=== PATIENT | female | born 1960 | race Caucasian/White ===

== ENCOUNTER → 2016-09-10 | Outpatient (CLI) | payer OTHER ==
[~2016-09-10] MED LIST: ASPIRIN DELAYE325 MG PO; ATENOLOL25 MG PO; ATENOLOL50 MG; COMPAZINE5 M1 PO; COUMADIN5 M1 PO; FISH OIL 500MG500 MG PO; FLOMAX0.4 MG PO; GABAPENTIN TAB600 MG PO; GLUCOSAMINE500 M1 PO; LANTUS100 U/ML SC; LIPITOR10 MG PO; LISINOPRIL/HCTZ1 TA1 PO; LISINOPRIL10 MG; MOTRIN800 MG PO; NOVAPLUS TACROLI1 MG PO; OMEPRAZOLE D/R20 MG PO; PERCOCET 325 MG1 TA2 PO; PRAVACHOL40 MG PO; PROCARDIA XL30 MG PO; SYNTHROID,LEVO75 MCG PO; VITAMIN D2000 IU PO
== END | disposition home or self-care (01) ==
LOC: US 19:00
DX: I73.9 Peripheral vascular disease, unspecified (principal); M79.604 Pain in right leg

== ENCOUNTER → 2016-11-13 | Outpatient (CLI) | payer OTHER ==
[2016-11-13 08:03] LABS: HEMATOCRIT 39.5 % (37.0-47.0); HEMOGLOBIN 13.1 g/dl (12.0-16.0); MEAN CELL VOLUME 85.5 fl (81.0-99.0); MEAN CORPUSCULAR HGB 28.4 pg (27.0-31.0); MEAN CORPUSCULAR HGB CONC 33.2 g/dl (33.0-37.0); MEAN PLATELET VOLUME 9.3 fl (9.6-12.3); PLATELET COUNT AUTOMATED 274 10*3/uL (130-400); RED BLOOD COUNT 4.62 10*6/uL (4.10-5.10); RED CELL DISTRI WIDTH 13.6 % (0-14.5); WHITE BLOOD COUNT 6.4 10*3/uL (4.8-10.8)
[2016-11-13 08:32] LABS: PLATELET SUFFICIENCY NORMAL (NORMAL); TOTAL CELLS COUNTED 100 #CELLS
[2016-11-13 08:35] LABS: ALBUMIN 3.3 gm/dl (3.1-4.5); ALKALINE PHOSPHATASE 90 U/L (45-117); BUN 12 mg/dl (7-24); CHLORIDE 104 mmol/L (98-107); CHOLESTEROL 190 mg/dL (<200); CREATININE 1.09 mg/dL (0.55-1.02); HDL CHOLESTEROL 38 mg/dl (40-60); LDL CHOLESTEROL 100 mg/dL (9-159); POTASSIUM 3.8 mmol/L (3.5-5.1); SGOT/AST 18 IU/L (3-35); SGPT/ALT 20 U/L (12-78); SODIUM 139 mmol/L (136-145); TOTAL PROTEIN 7.3 gm/dL (6.4-8.2); TRIGLYCERIDES 260 mg/dl (<150); VLDL CHOLESTEROL 52 mg/dL (6-40)
[2016-11-14 08:12] LABS: COMPLEMENT C4 001834 30 mg/dL (14-44)
[2016-11-14 12:07] LABS: ANA DIRECT Positive (Negative); ANTI-DSDNA ANTIBODIES 096339 <1 IU/mL (0-9); ANTICHROMATIN ANTIBODIES 0.3 AI (0.0-0.9)
[2016-11-15 00:09] LABS: DILUTE PROTHROMBIN TIME 46.6 sec (0.0-55.0); LUPUS DRVVT 63.2 sec (0.0-47.0); PTT-LA 45.8 sec (0.0-51.9)
== END ==
LOC: LAB 07:19
PROVIDERS: Internal Medicine
DX: E78.2 Mixed hyperlipidemia (principal); E03.9 Hypothyroidism, unspecified; I10 Essential (primary) hypertension; I77.2 Rupture of artery; M32.19 Other organ or system involvement in systemic lupus erythematosus

== ENCOUNTER → 2017-02-13 | Outpatient (CLI) | payer OTHER | LOC: US 15:00 | DX: I65.23 Occlusion and stenosis of bilateral carotid arteries (principal); I25.10 Atherosclerotic heart disease of native coronary artery without angina pectoris; I77.9 Disorder of arteries and arterioles, unspecified ==

== ENCOUNTER → 2017-05-31 | Outpatient (CLI) | payer OTHER | END | disposition home or self-care (01) | LOC: RAD 16:30 | DX: M54.9 Dorsalgia, unspecified (principal); R31.9 Hematuria, unspecified; R11.2 Nausea with vomiting, unspecified; R10.819 Abdominal tenderness, unspecified site ==

== ENCOUNTER 2017-07-13 09:59 | Emergency (ER) | payer OTHER ==
[~2017-07-13] VITALS: Ht 162.5 cm; Wt 90.7 kg
[2017-07-13 10:41] LABS: BASO % 0.3 % (0.0-1.0); EOS # 0.2 10*3/uL (0.0-0.4); EOS % 1.5 % (1.0-4.0); HEMATOCRIT 43.4 % (37.0-47.0); HEMOGLOBIN 14.8 g/dl (12.0-16.0); LYMPH # 1.7 10*3/uL (1.3-4.4); LYMPH % 12.9 % (27.0-41.0); MEAN CORPUSCULAR HGB 28.3 pg (27.0-31.0); MEAN CORPUSCULAR HGB CONC 34.1 g/dl (33.0-37.0); MONO # 1.3 10*3/uL (0.1-1.0); MONO % 9.6 % (3.0-9.0); NEUT # 9.8 10*3/uL (2.3-7.9); NEUT % 75.3 % (47.0-73.0); PLATELET COUNT AUTOMATED 340 10*3/uL (130-400); RED BLOOD COUNT 5.23 10*6/uL (4.10-5.10); RED CELL DISTRI WIDTH 14.3 % (0-14.5)
[2017-07-13] MEDS ORDERED: METOPROLOL SUCC25 M2 PO (10:44)
[2017-07-13] MEDS ORDERED: HYDR25T PO (10:45)
[2017-07-13] MEDS ORDERED: LEVOTHYROXINE75 MCG PO (10:46)
[2017-07-13] MEDS ORDERED: LIPITOR20 MG PO (10:46)
[2017-07-13 11:12] LABS: ACT PARTIAL THROMBO TIME 24.4 SECONDS (20.8-31.5); INTERNATIONAL NORM RATIO 0.9 (2.0-3.5)
[2017-07-13 11:19] LABS: ALBUMIN 3.2 gm/dl (3.1-4.5); CREATININE 1.2 mg/dL (0.55-1.02); POTASSIUM 3.8 mmol/L (3.5-5.1); TOTAL PROTEIN 7.2 gm/dL (6.4-8.2)
== END 2017-07-13 11:56 | disposition home or self-care (01) ==
LOC: ED 09:59
PROVIDERS: Nurse Practitioner Family
DX: G89.18 Other acute postprocedural pain (principal); I12.9 Hypertensive chronic kidney disease with stage 1 through stage 4 chronic kidney disease, or unspecified chronic kidney disease; N18.3 Chronic kidney disease, stage 3 (moderate); M10.9 Gout, unspecified; E66.9 Obesity, unspecified; Z68.34 Body mass index [BMI] 34.0-34.9, adult; Z86.73 Personal history of transient ischemic attack (TIA), and cerebral infarction without residual deficits; Z90.710 Acquired absence of both cervix and uterus; Z90.89 Acquired absence of other organs; Z87.891 Personal history of nicotine dependence; Z86.718 Personal history of other venous thrombosis and embolism; Z88.1 Allergy status to other antibiotic agents; Z88.5 Allergy status to narcotic agent; Z98.890 Other specified postprocedural states

== ENCOUNTER 2017-07-18 07:12 | Inpatient (IN) | payer OTHER ==
[~2017-07-18] VITALS: Ht 163 cm; Wt 92.0 kg
--- NOTE | ~2017-07-18 | PR ---
[place], [place] PROGRESS NOTE NAME: KEYLA RODRIGUEZ UNIT #: [id number] ROOM: 531 DOCTOR: COMFORT [place] MD BIRTHDATE: [birth year] DOS: 07/21/2017 SUBJECTIVE: The patient has been noted comfortable at this time without acute distress. She has not been reported any further episodes of hemoptysis. Chest pain is completely resolved. She has been ambulating without any shortness of breath. OBJECTIVE: VITAL SIGNS: Normal temperature, respiratory rate 18, heart rate 87, and blood pressure 137/46. The pulse oxygen saturation on room air 98% saturation. HEENT: Examination shows head was atraumatic. Eye nonicterus. NECK: Supple. CARDIOVASCULAR: S1, S2 audible. LUNGS: Noted without any crackle, rhonchi or wheezing. ABDOMEN: Soft, nontender. EXTREMITIES: No acute edema. LABORATORY DATA: Chest x-ray of the patient that was done this morning was reviewed and noted with a small pleural fluid was noted with basilar density without any progression. IMPRESSION: 1. The patient with acute pulmonary infarction with acute pulmonary embolism involving the right lower lobe as well. 2. Small right pleural fluid remains stable related to current pulmonary infarction. 3. Recent malignancy ____ status post partial radical vulvectomy. PLAN OF MANAGEMENT: The patient could be discharged home on the Lovenox 1 mg/kg body weight and then subsequent followup by the Medical Oncology or in my office to determine the changes in the anticoagulation accordingly. In the meantime, continue supportive therapy, plan of management and care plan. Usual treatment. Other supportive plan of therapies. [place], [place] PROGRESS NOTE NAME: KEYLA RODRIGUEZ UNIT #: [id number] ROOM: 531 DOCTOR: COMFORT [place] MD BIRTHDATE: [birth year] COMFORT CHEN MD CM:PNTRANS [phone] COMFORT MICHEL MD 07/21/171951 interface
--- NOTE | ~2017-07-18 | CON ---
[place], [place] REPORT OF CONSULTATION NAME: KEYLA RODRIGUEZ UNIT #: [id number] ROOM: 531 DOCTOR: GUSTAVO MICHEL MD,COMFORT BIRTHDATE: [birth year] DOS: ADDENDUM PLAN OF MANAGEMENT: Current hemoptysis, the patient not noted active with clotted blood; however, this needs to be closely monitored. In case of worsening of hemoptysis, the patient may require IVC filter insertion at that time. If the hemoptysis worsens, ____ bronchoscopy could be done and additional studies might be necessary for the medical management of hemoptysis. The Lovenox will be continued, drug of choice because of the current recent diagnosis of malignancy to be continued for the anticoagulation primary agent. Hypercoagulability workup was ordered. Hypokalemia, which was noted, which was done this admission has already been supplemented by the primary care attending. COMFORT CHEN MD CM:CONSTR:REPORT OF CONSULTATION 1217 07/19/17 1338 interface
--- NOTE | ~2017-07-18 | CON ---
[place], [place] REPORT OF CONSULTATION [id number] UNIT #: [id number] ROOM: 531 DOCTOR: COMFORT [place] MD BIRTHDATE: [birth year] DOS: 07/19/2017 PULMONARY CONSULTATION, EVALUATION, AND MANAGEMENT CONSULTATION REQUESTED BY: Hospitalist service. REASON FOR CONSULTATION: For the assessment of current pulmonary embolism and hemoptysis. HISTORY OF PRESENT ILLNESS: This is a 57-year-old white female who started with having pain, which was described in the right lower chest wall. The pain has been noted progressively worsening. The patient was seen in the Emergency Room initially on 07/13/2017. The patient was assessed by the ER physician with the physician assistant track and field coach. The patient was given some pain medication after the workup done and sent home. The patient presented back to the Emergency Room yesterday. The patient was noted to be excruciating that she has also expectorated as a blood clot. The patient denies any damion hemoptysis. The patient does have another episode of similar expectoration of clotted blood this morning as well. As the patient arrived in the Emergency Room, she has a workup completed including CTA of the chest, which described evidence of pulmonary embolism. The patient had been currently treated for that with intravenous unfractionated therapeutic heparin use. She has been noted still pain, which has been noted decrease in the intensity for the patient not completely resolved. The pain is described on a scale of 1-10 up to 8 or 9 at time. The pain was described ____ some to the front. The pain was not associated with symptoms of syncopal episodes. She denies any symptoms of wheezing. The patient does have shortness of breath with recurrent symptoms which occurs with exertion, not noted at rest. REVIEW OF SYSTEMS: CONSTITUTIONAL SYMPTOMS: Fatigue and tiredness noted without any symptoms of fever or chills at home. EYES: Denies any burning, redness, or tenderness. EARS, NOSE, THROAT SYMPTOMS: Denies sore throat, hoarseness, otalgia, postnasal drainage or epistaxis. CARDIOVASCULAR: Denies angina pain, edema, or pain of the lower extremities. Denies symptoms of palpitation or anginal pain. GASTROINTESTINAL: No dysphagia, nausea, vomiting, abnormal weight loss. MUSCULOSKELETAL: Denies symptoms of acute joint pain, redness, or tenderness. SKIN: Denies any abnormal lesions or rashes. CENTRAL NERVOUS SYSTEM: Denies any dizziness, headache or diplopia. ONCOLOGY: The patient has been diagnosed with cancer of the vulva, underwent radical vulvectomy on 07/08/2017 and discharged as outpatient after the completion of surgery as per the patient and [facility] in [place], [place]. PAST MEDICAL HISTORY: Known with history of: 1. Chronic moderate obesity. 2. Recent cancer of the vulva, status post radical vulvectomy on 07/08/2017. 3. History of deep venous thrombosis in the past. 4. Chronic kidney disease stage 3. [place], [place] REPORT OF CONSULTATION NAME: KEYLA RODRIGUEZ UNIT #: [id number] ROOM: 531 DOCTOR: COMFORT [place] MD BIRTHDATE: [birth year] 5. Hypothyroidism. 6. Gout. 7. Essential hypertension. 8. TIA was also noted previously. 9. The patient with arterial embolism was also noted in the lower extremity, which was treated with embolectomy. PAST SURGICAL HISTORY: Noted with several surgeries that include: 1. Left carotid endarterectomy. 2. Thrombectomy of the left lower extremity. 3. T and A. 4. Surgery for the deviated nasal septum. 5. Partial radical vulvectomy due to basal cell cancer. SOCIAL HISTORY: Noted without any history of alcohol use or illicit drug use. Tobacco use was noted for the patient, has a pack of cigarettes per day for 30 years that was discontinued in 2012. FAMILY HISTORY: The patient's father is who from complication of prostate cancer with mets to the bone. The mother known with history of rheumatoid arthritis. HOME MEDICATIONS: Listed use of metoprolol tartrate, levothyroxine, hydrochlorothiazide, ____ calcium, and aspirin. DRUG ALLERGIES: REPORTED ALLERGY TO: 1. CIPROFLOXACIN. 2. AZITHROMYCIN. 3. DEMEROL. PHYSICAL EXAMINATION: GENERAL: This is a 57-year-old female who has been currently lying in the bed without any acute distress at this time. The patient's height was recorded by the nursing staff on this admission, height of 5 feet 4 inches, weight of 202 pounds, BMI of 34.6. VITAL SIGNS: Noted normal temperature, respiratory rate 18-20. Heart rate 73-87, blood pressure of 95/79-116/60. Pulse oxygen saturation of the patient noted on room air 92% saturation. HEENT: Examination shows head was atraumatic. Eyes nonicterus. NECK: Supple. Neck was obese. Decreased posterior pharyngeal space, high tongue base and crowding of soft tissue structures. CARDIOVASCULAR: S1, S2 is audible. LUNGS: Noted moderate reduction of the breath sounds noted in the lungs bilaterally, more on the right than the left side. There was no wheezing heard. ABDOMEN: Soft with obesity. Bowel sounds present. EXTREMITIES: The patient without any acute edema. MUSCULOSKELETAL: Without any acute deformities. VISIBLE SKIN: No lesions or rashes. CENTRAL NERVOUS SYSTEM: Cranial nerves 2-12 intact. No focal deficit. [place], [place] REPORT OF CONSULTATION NAME: KEYLA RODRIGUEZ UNIT #: [id number] ROOM: 531 DOCTOR: COMFORT [place] MD BIRTHDATE: [birth year] LABORATORY DATA: CBC of the patient on 07/18/2017 noted platelet count of 404,000 otherwise normal. PT/PTT for the patient on 07/18/2017 was normal. CMP of the patient on 07/18/2017, glucose 123, BUN 18, creatinine 1.15. Potassium 3.2. The PTT for the patient, last one was done at 05:55 is noted with PTT of 90. CBC of this morning: WBC count normal, hemoglobin 11.6, platelet count normal. CMP of the patient this morning, BUN of 12, creatinine was normal. Potassium 3.3. The chest x-ray of the patient that was done on 07/13/2017 during the assessment in the Emergency Room was essentially noted as a normal study. Chest x-ray of the patient that was done on 07/18/2017 one view still noted as a normal study. CT of the chest that was completed yesterday was reviewed personally and independently shows evidence of pulmonary embolus involving the right lower lobe pulmonary arterial branches. Evidence of wedge-shaped infiltration noted pleural base associated with small pleural fluid with suspicion of pulmonary infarction. IMPRESSION: 1. The patient who has been currently admitted to the hospital with past history of deep venous thrombosis has developed acute pulmonary embolism for the patient for surgery with current malignancy. The patient underwent partial radical vulvectomy for the cancer of the vulva. 2. The patient with moderate obesity was also noted as well. Other medical condition noted in the past history for the patient as well. Hemoptysis, most likely related to the current acute pulmonary infarction and showed self-limited ____. Possibility of superimposed pneumonia can be excluded. PLAN OF MANAGEMENT: The patient has been started on Lovenox 90 mg every 12 hours, but the dose will be started 3 hours after the discontinuation of the IV heparin to prevent over anticoagulation. Continuation of the current antibiotic doxycycline should suffice for this patient for any pulmonary infection and/or pneumonia management. The patient does not have any evidence of hypoxia, would not require any oxygen supplementation. She was still complaining of pain not adequately controlled. She was ordered morphine sulfate 2 mg every 4 hours for the medical management of pain and also to be continued Midkiff oral pain medication as well. Monitoring of the chest x-ray of the patient with a followup chest x-ray in the next 24-48 hours for the pleural fluid or any other problems of assessment. Usual care, other supportive plan of therapy and care plan. All the comfort measures. Usual care, other treatment plan of management to be continued. Thank you for allowing me to participate in the care of this patient. [place], [place] REPORT OF CONSULTATION NAME: KEYLA RODRIGUEZ UNIT #: [id number] ROOM: 531 DOCTOR: COMFORT [place] MD BIRTHDATE: [birth year] COMFORT CHEN MD CM:CONSTR:REPORT OF CONSULTATION 1213 07/19/17 1526 interface
--- NOTE | ~2017-07-18 | PR ---
[place], [place] PROGRESS NOTE NAME: KEYLA RODRIGUEZ UNIT #: [id number] ROOM: 531 DOCTOR: COMFORT [place] MD BIRTHDATE: [birth year] DOS: 07/20/2017 PULMONARY PROGRESS NOTE SUBJECTIVE: The patient has been noted comfortable at this time. The chest pain has been improved significantly in the last 24 hours. Denies symptoms of hemoptysis. The patient was noted mild cough without any sputum expectoration. Denies diaphoresis. PHYSICAL EXAMINATION: VITAL SIGNS: Normal temperature, respiratory rate 20, heart rate 85, and blood pressure 150/72. Pulse oxygen saturation on room air was 96% saturation. HEENT: On examination, head was atraumatic. Eyes nonicterus. NECK: Supple. CARDIOVASCULAR: S1, S2 audible. LUNGS: The patient was noted without any wheeze or crackles at the present time. ABDOMEN: Soft and obese. EXTREMITIES: Without any acute edema. LABORATORY DATA: CBC: Hemoglobin 11.7; otherwise normal CBC. CMP normal this morning. IMAGING STUDIES: Chest x-ray that was done this morning was noted with a small pleural fluid in the right side with basilar area of infiltration. IMPRESSION: The patient who has been noted current pulmonary embolism, which was acute with associated pulmonary infarction resulting in hemoptysis. Hemoptysis has been resolved. Small pleural fluid, which has seen without any progression. PLAN OF TREATMENT: Continue Lovenox subcutaneous injection. Continuation of the current antibiotic as well. Repeat another x-ray in the morning prior to making final home discharge recommendations. [place], [place] PROGRESS NOTE NAME: KEYLA RODRIGUEZ UNIT #: [id number] ROOM: 531 DOCTOR: COMFORT [place] MD BIRTHDATE: [birth year] COMFORT CHEN MD CM:PNTRANS [id number] COMFORT MICHEL MD 07/20/17 2313 interface
[~2017-07-18 07:12] MED LIST changes: +HYDR25T PO; +LEVOTHYROXINE75 MCG PO; +LIPITOR20 MG PO; +METOPROLOL SUCC25 M2 PO
[2017-07-18 07:18] VITALS: BP 162/81
[2017-07-18 07:59] LABS: BASO % 0.3 % (0.0-1.0); EOS # 0.2 10*3/uL (0.0-0.4); EOS % 2.5 % (1.0-4.0); HEMATOCRIT 38.4 % (37.0-47.0); HEMOGLOBIN 13.2 g/dl (12.0-16.0); LYMPH # 1.9 10*3/uL (1.3-4.4); LYMPH % 21.6 % (27.0-41.0); MEAN CELL VOLUME 82.1 fl (81.0-99.0); MEAN CORPUSCULAR HGB 28.2 pg (27.0-31.0); MEAN CORPUSCULAR HGB CONC 34.4 g/dl (33.0-37.0); MEAN PLATELET VOLUME 8.7 fl (9.6-12.3); MONO # 0.7 10*3/uL (0.1-1.0); MONO % 7.7 % (3.0-9.0); NEUT # 5.9 10*3/uL (2.3-7.9); NEUT % 67.4 % (47.0-73.0); PLATELET COUNT AUTOMATED 404 10*3/uL (130-400); RED BLOOD COUNT 4.68 10*6/uL (4.10-5.10); RED CELL DISTRI WIDTH 13.5 % (0-14.5); WHITE BLOOD COUNT 8.7 10*3/uL (4.8-10.8)
[2017-07-18 08:08] LABS: ACT PARTIAL THROMBO TIME 24.1 SECONDS (20.8-31.5); INTERNATIONAL NORM RATIO 0.9 (2.0-3.5)
[2017-07-18 08:20] LABS: ALBUMIN 3.1 gm/dl (3.1-4.5); ALKALINE PHOSPHATASE 94 U/L (45-117); BUN 18 mg/dl (7-24); CHLORIDE 98 mmol/L (98-107); CREATININE 1.15 mg/dL (0.55-1.02); LIPASE 93 U/L (73-393); POTASSIUM 3.2 mmol/L (3.5-5.1); SGOT/AST 24 IU/L (3-35); SGPT/ALT 27 U/L (12-78); SODIUM 136 mmol/L (136-145); TOTAL PROTEIN 7.9 gm/dL (6.4-8.2)
[2017-07-18 08:21] LABS: TROPONIN I < 0.015 ng/ml (<0.045)
[2017-07-18 08:28] VITALS: BP 141/74
[2017-07-18 11:29] VITALS: BP 131/90
[2017-07-18 11:45] VITALS: BP 138/87
[2017-07-18 16:00] VITALS: BP 135/73
[2017-07-18 20:00] VITALS: BP 116/60
[2017-07-19] VITALS: BP 107/74
[2017-07-19 02:45] VITALS: BP 120/60
[2017-07-19 06:35] LABS: BASO # 0.1 10*3/uL (0.0-0.1); BASO % 0.6 % (0.0-1.0); EOS # 0.3 10*3/uL (0.0-0.4); EOS % 3.5 % (1.0-4.0); HEMATOCRIT 34.5 % (37.0-47.0); HEMOGLOBIN 11.6 g/dl (12.0-16.0); LYMPH # 3.9 10*3/uL (1.3-4.4); LYMPH % 39.9 % (27.0-41.0); MEAN CELL VOLUME 84.1 fl (81.0-99.0); MEAN CORPUSCULAR HGB 28.3 pg (27.0-31.0); MEAN CORPUSCULAR HGB CONC 33.6 g/dl (33.0-37.0); MEAN PLATELET VOLUME 9.1 fl (9.6-12.3); MONO # 0.6 10*3/uL (0.1-1.0); MONO % 6.5 % (3.0-9.0); NEUT # 4.8 10*3/uL (2.3-7.9); PLATELET COUNT AUTOMATED 385 10*3/uL (130-400); RED CELL DISTRI WIDTH 13.4 % (0-14.5); WHITE BLOOD COUNT 9.8 10*3/uL (4.8-10.8)
[2017-07-19 06:48] LABS: ALBUMIN 2.6 gm/dl (3.1-4.5); ALKALINE PHOSPHATASE 81 U/L (45-117); BUN 12 mg/dl (7-24); CHLORIDE 103 mmol/L (98-107); CHOLESTEROL 100 mg/dL (<200); CREATININE 1.06 mg/dL (0.55-1.02); HDL CHOLESTEROL 30 mg/dl (40-60); LDL CHOLESTEROL 49 mg/dL (9-159); PHOSPHOROUS 3.8 mg/dL (2.5-4.9); POTASSIUM 3.3 mmol/L (3.5-5.1); SGOT/AST 28 IU/L (3-35); SGPT/ALT 30 U/L (12-78); SODIUM 140 mmol/L (136-145); TOTAL PROTEIN 6.5 gm/dL (6.4-8.2); TRIGLYCERIDES 105 mg/dl (<150); VLDL CHOLESTEROL 21 mg/dL (6-40)
[2017-07-19 06:49] LABS: FREE T4 1.23 ng/dl (0.76-1.46); TROPONIN I < 0.015 ng/ml (<0.045)
[2017-07-19 08:00] VITALS: BP 95/79
[2017-07-19 08:23] LABS: VITAMIN D, 25-HYDROXY 36.7 ng/mL (30-100)
[2017-07-19 12:00] VITALS: BP 133/69
[2017-07-19 20:00] VITALS: BP 128/63
[2017-07-20] VITALS: BP 115/56
[2017-07-20] MEDS ORDERED: LEVOTHYROXINE50 MCG PO (03:29)
[2017-07-20] MEDS ORDERED: Percocet 325 MG1 TAB PO (03:29)
[2017-07-20 06:13] LABS: BASO # 0.1 10*3/uL (0.0-0.1); BASO % 0.6 % (0.0-1.0); EOS # 0.4 10*3/uL (0.0-0.4); EOS % 4.7 % (1.0-4.0); HEMATOCRIT 35.4 % (37.0-47.0); HEMOGLOBIN 11.7 g/dl (12.0-16.0); LYMPH # 2.7 10*3/uL (1.3-4.4); LYMPH % 34.2 % (27.0-41.0); MEAN CELL VOLUME 85.1 fl (81.0-99.0); MEAN CORPUSCULAR HGB 28.1 pg (27.0-31.0); MEAN CORPUSCULAR HGB CONC 33.1 g/dl (33.0-37.0); MEAN PLATELET VOLUME 8.9 fl (9.6-12.3); MONO # 0.5 10*3/uL (0.1-1.0); MONO % 6.2 % (3.0-9.0); NEUT # 4.2 10*3/uL (2.3-7.9); NEUT % 53.8 % (47.0-73.0); PLATELET COUNT AUTOMATED 408 10*3/uL (130-400); RED BLOOD COUNT 4.16 10*6/uL (4.10-5.10); RED CELL DISTRI WIDTH 13.9 % (0-14.5); WHITE BLOOD COUNT 7.9 10*3/uL (4.8-10.8)
[2017-07-20 06:29] LABS: ALBUMIN 2.8 gm/dl (3.1-4.5); ALKALINE PHOSPHATASE 84 U/L (45-117); BUN 10 mg/dl (7-24); CHLORIDE 108 mmol/L (98-107); CREATININE 1.03 mg/dL (0.55-1.02); PHOSPHOROUS 3.2 mg/dL (2.5-4.9); POTASSIUM 3.5 mmol/L (3.5-5.1); SGOT/AST 21 IU/L (3-35); SGPT/ALT 28 U/L (12-78); SODIUM 143 mmol/L (136-145); TOTAL PROTEIN 6.8 gm/dL (6.4-8.2)
[2017-07-20 08:00] VITALS: BP 135/64
[2017-07-20 12:00] VITALS: BP 150/72
[2017-07-20 16:00] VITALS: BP 95/72
[2017-07-20 16:05] LABS: ANTICARDIOLIPIN AB, IGG, QN <9 GPL U/mL (0-14); ANTICARDIOLIPIN AB, IGM, QN 11 MPL U/mL (0-12); CARDIOLIPIN AB IGA 161836 <9 APL U/mL (0-11)
[2017-07-20 20:00] VITALS: BP 148/58
[2017-07-21] VITALS: BP 134/68
[2017-07-21 06:25] LABS: BUN 7 mg/dl (7-24); CHLORIDE 110 mmol/L (98-107); CREATININE 0.92 mg/dL (0.55-1.02); POTASSIUM 3.3 mmol/L (3.5-5.1); SODIUM 145 mmol/L (136-145)
[2017-07-21 08:00] VITALS: BP 146/66
[2017-07-21 11:03] LABS: ANTI-THROMBIN III ACTIVITY 82 % (75-135); PROTEIN S, FREE 100 % (57-157); PROTEIN S, TOTAL 97 % (60-150)
[2017-07-21 12:00] VITALS: BP 137/46
[2017-07-21] MEDS ORDERED: ENOXAPARIN100 MG/1 M SC ×2 (14:30→15:24)
[2017-07-21] MEDS ORDERED: DOXYCYCLINE100 M3 PO (14:30)
[2017-07-23 05:06] LABS: LUPUS DRVVT 65.8 sec (0.0-47.0)
[2017-07-24 17:05] LABS: LUPUS REFLEX INTERPRETATION Comment: (.)
== END 2017-07-21 16:10 | disposition home or self-care (01) | DRG 175 ==
LOC: ED 07:12 → EDHOLD 11:08 → 5E 11:08
PROVIDERS: Emergency Medicine; Family Medicine; Internal Medicine; Registered Nurse
DX: I26.99 Other pulmonary embolism without acute cor pulmonale (principal); J18.1 Lobar pneumonia, unspecified organism; G45.9 Transient cerebral ischemic attack, unspecified; N18.3 Chronic kidney disease, stage 3 (moderate); E83.41 Hypermagnesemia; E66.9 Obesity, unspecified; E87.6 Hypokalemia; R73.9 Hyperglycemia, unspecified; D04.9 Carcinoma in situ of skin, unspecified; I12.9 Hypertensive chronic kidney disease with stage 1 through stage 4 chronic kidney disease, or unspecified chronic kidney disease; D47.3 Essential (hemorrhagic) thrombocythemia; M10.9 Gout, unspecified; E03.9 Hypothyroidism, unspecified; Z90.710 Acquired absence of both cervix and uterus; Z82.49 Family history of ischemic heart disease and other diseases of the circulatory system; Z83.3 Family history of diabetes mellitus; Z86.718 Personal history of other venous thrombosis and embolism; Z82.3 Family history of stroke; Z80.3 Family history of malignant neoplasm of breast; Z88.1 Allergy status to other antibiotic agents; Z79.82 Long term (current) use of aspirin; Z68.34 Body mass index [BMI] 34.0-34.9, adult

== ENCOUNTER → 2017-11-07 | Outpatient (CLI) | payer OTHER ==
[~2017-11-07] MED LIST changes: +DOXYCYCLINE100 M3 PO; +ENOXAPARIN100 MG/1 M SC; +LEVOTHYROXINE50 MCG PO; +Percocet 325 MG1 TAB PO
[2017-11-13 02:03] LABS: PROTEIN C, ACTIVITY 63 % (.); PROTEIN S ACTIVITY 84 % (.)
== END | disposition home or self-care (01) ==
LOC: LAB 15:37
PROVIDERS: Physician Assistant
DX: I26.99 Other pulmonary embolism without acute cor pulmonale (principal)

== ENCOUNTER → 2017-11-15 | Outpatient (CLI) | payer OTHER | END | disposition home or self-care (01) | LOC: US 14:00 | DX: M79.604 Pain in right leg (principal); M79.605 Pain in left leg; R20.0 Anesthesia of skin; R29.898 Other symptoms and signs involving the musculoskeletal system; I10 Essential (primary) hypertension; I26.99 Other pulmonary embolism without acute cor pulmonale ==

== ENCOUNTER → 2018-01-27 | Outpatient (CLI) | payer OTHER | END | disposition home or self-care (01) | LOC: US 12:30 | DX: I73.9 Peripheral vascular disease, unspecified (principal); I10 Essential (primary) hypertension; E78.2 Mixed hyperlipidemia; I65.23 Occlusion and stenosis of bilateral carotid arteries; I74.3 Embolism and thrombosis of arteries of the lower extremities; Z86.711 Personal history of pulmonary embolism; Z86.73 Personal history of transient ischemic attack (TIA), and cerebral infarction without residual deficits ==

== ENCOUNTER → 2018-06-04 | Outpatient (CLI) | payer OTHER ==
[2018-06-04 15:23] LABS: HEMATOCRIT 40.5 % (37.0-47.0); HEMOGLOBIN 13.3 g/dl (12.0-16.0); MEAN CELL VOLUME 86.5 fl (81.0-99.0); MEAN CORPUSCULAR HGB 28.4 pg (27.0-31.0); MEAN CORPUSCULAR HGB CONC 32.8 g/dl (33.0-37.0); MEAN PLATELET VOLUME 8.9 fl (9.6-12.3); RED BLOOD COUNT 4.68 10*6/uL (4.10-5.10); RED CELL DISTRI WIDTH 14.4 % (0-14.5); WHITE BLOOD COUNT 6.6 10*3/uL (4.8-10.8)
[2018-06-04 15:39] LABS: ALBUMIN 3.3 gm/dl (3.1-4.5); CREATININE 1.16 mg/dL (0.55-1.02); POTASSIUM 4.2 mmol/L (3.5-5.1); TOTAL PROTEIN 7.2 gm/dL (6.4-8.2)
[2018-06-04 16:06] LABS: VITAMIN D, 25-HYDROXY 33.5 ng/mL (30-100)
== END | disposition home or self-care (01) ==
LOC: LAB 14:47
PROVIDERS: Physician Assistant
DX: Z12.11 Encounter for screening for malignant neoplasm of colon (principal); I26.99 Other pulmonary embolism without acute cor pulmonale; E03.9 Hypothyroidism, unspecified; I74.9 Embolism and thrombosis of unspecified artery; E55.9 Vitamin D deficiency, unspecified

== ENCOUNTER → 2020-11-10 | Outpatient (CLI) | payer OTHER | END | disposition home or self-care (01) | LOC: COVID19 15:36 | PROVIDERS: ATTEND Internal Medicine | DX: Z11.52 Encounter for screening for COVID-19 (principal) ==

== ENCOUNTER → 2022-06-07 | Outpatient (CLI) | payer BC | END | disposition home or self-care (01) | LOC: LAB 11:14 | PROVIDERS: ATTEND Nurse Practitioner Family | DX: N39.0 Urinary tract infection, site not specified (principal) ==

== ENCOUNTER → 2023-05-07 | Outpatient (CLI) | payer BC | END | disposition home or self-care (01) | LOC: CT 01:23 | PROVIDERS: ATTEND Physician Assistant | DX: Z12.31 Encounter for screening mammogram for malignant neoplasm of breast (principal); J43.9 Emphysema, unspecified; I25.10 Atherosclerotic heart disease of native coronary artery without angina pectoris; J44.9 Chronic obstructive pulmonary disease, unspecified; I73.9 Peripheral vascular disease, unspecified; Z87.891 Personal history of nicotine dependence ==

== ENCOUNTER → 2024-09-24 | Outpatient (CLI) | payer OTHER | END | disposition home or self-care (01) | LOC: MAMMO 09:00 | PROVIDERS: ATTEND Physician Assistant | DX: Z12.31 Encounter for screening mammogram for malignant neoplasm of breast (principal); Z12.2 Encounter for screening for malignant neoplasm of respiratory organs; R92.313 Mammographic fatty tissue density, bilateral breasts; F17.210 Nicotine dependence, cigarettes, uncomplicated ==